=== PATIENT | male | born 1990 | race Caucasian/White ===

== ENCOUNTER 2024-06-16 20:25 | Emergency (ER) | payer OTHER ==
[~2024-06-16] VITALS: Ht 180.3 cm; Wt 77.1 kg
[2024-06-16] MEDS ORDERED: IBUP-1490 PO (22:33)
[2024-06-16] MEDS ORDERED: KETOROLAC TROMETHAMINE 15 MG/ML VIAL ONE (22:49)
[2024-06-16] MEDS: KETOROLAC TROMETHAMINE 15 MG/ML VIAL IM ONE (22:55)
[2024-06-16 22:56] VITALS: BP 149/73; TEMP 98; O2SAT 98
== END 2024-06-16 22:56 | disposition home or self-care (01) ==
LOC: ER 20:36
DX: S13.4XXA Sprain of ligaments of cervical spine, initial encounter (principal); V89.2XXA Person injured in unspecified motor-vehicle accident, traffic, initial encounter; Y93.89 Activity, other specified; Y92.410 Unspecified street and highway as the place of occurrence of the external cause; Y99.8 Other external cause status
CPT/HCPCS: 99283; 96372; J1885